=== PATIENT | female | born 1950 | race Caucasian/White ===

== ENCOUNTER 2016-12-09 12:38 | Emergency (ER) | payer OTHER ==
[2016-12-09] MEDS ORDERED: TAMIFLU 75MG75 MG PO (16:51)
[2016-12-09 17:08] VITALS: BP 115/63
[2016-12-09] MEDS ORDERED: AMBIEN10 MG PO (17:21)
[2016-12-09] MEDS ORDERED: SYNTHROID0.1 MG/TAB PO (17:21)
[2016-12-09] MEDS ORDERED: SIMVASTATIN40 M1 PO (17:22)
[2016-12-09] MEDS ORDERED: SAXENDA3 MG/0.5 M SC (17:22)
[2016-12-09] MEDS ORDERED: CITALOPRAM40 MG PO (17:22)
[2016-12-09] MEDS ORDERED: PREMARIN VAG42.5 GM VG (17:23)
[2016-12-09] MEDS ORDERED: FISH OIL1000 MG PO (17:24)
[2016-12-09] MEDS ORDERED: CITRACAL + D E1 EACH PO (17:24)
[2016-12-09] MEDS ORDERED: BIOTIN1000 MC1 PO (17:25)
[2016-12-09] MEDS ORDERED: DAILY VALUE1 EACH PO (17:26)
[2016-12-09] MEDS ORDERED: BENADRYL PO (17:26)
[2016-12-09] MEDS ORDERED: DULCOLAX STOOL100 MG PO (17:26)
[2016-12-09] MEDS ORDERED: ASPIRIN E.C. 8181 MG PO (17:27)
== END 2016-12-09 17:08 | disposition home or self-care (01) ==
LOC: ED 12:38
DX: J09.X2 Influenza due to identified novel influenza A virus with other respiratory manifestations (principal); R55 Syncope and collapse; R51 Headache
CPT/HCPCS: J1885; J7120

== ENCOUNTER → 2016-12-09 | Outpatient (CLI) | payer OTHER ==
[~2016-12-09] MED LIST: AMBIEN10 MG PO; ASPIRIN E.C. 8181 MG PO; BENADRYL PO; BIOTIN1000 MC1 PO; CITALOPRAM40 MG PO; CITRACAL + D E1 EACH PO; DAILY VALUE1 EACH PO; DULCOLAX STOOL100 MG PO; FISH OIL1000 MG PO; PREMARIN VAG42.5 GM VG; SAXENDA3 MG/0.5 M SC; SIMVASTATIN40 M1 PO; SYNTHROID0.1 MG/TAB PO; TAMIFLU 75MG75 MG PO
== END ==
LOC: LAB 12:19
DX: R50.9 Fever, unspecified (principal)

== ENCOUNTER → 2016-12-21 | Outpatient (CLI) | payer OTHER | LOC: LAB 13:49 | DX: Q25.3 Supravalvular aortic stenosis (principal); E03.4 Atrophy of thyroid (acquired) ==

== ENCOUNTER → 2017-05-24 | Outpatient (CLI) | payer OTHER | LOC: LAB 07:20 | DX: Z00.00 Encounter for general adult medical examination without abnormal findings (principal) ==

== ENCOUNTER → 2017-10-09 | Outpatient (CLI) | payer OTHER ==
[2017-10-09 08:26] LABS: EOS # 0.1 (0.04-0.40); EOS % 1.7 % (1.0-5.0); HEMATOCRIT 36.5 % (37.0-47.0); HEMOGLOBIN 11.6 g/dL (12.5-16.0); LYMPH# 2.4 (1.50-4.00); MEAN CELL VOLUME 86 fl (78-100); MEAN CORPUSCULAR HEMOGLOBIN 27 pg (27-31); MEAN CORPUSCULAR HGB CONC 32 g/dL (33-37); MEAN PLATELET VOLUME 9.3 fl (7.4-10.4); MONO # 0.6 (0.20-0.80); NEU # 3.4 (1.40-6.50); PLATELET COUNT 266 K/mm3 (130-400); RED BLOOD COUNT 4.25 M/mm3 (4.10-5.30); RED CELL DISTRIBUTION WIDTH 13.3 % (11.5-14.5); WHITE BLOOD COUNT 6.6 K/mm3 (4.8-10.8)
[2017-10-09 08:41] LABS: ALBUMIN 4.4 g/dL (3.5-5.0); BUN/CREATININE RATIO 21.7 (6.0-26.0); POTASSIUM 4.4 mmol/L (3.6-5.0); TOTAL BILIRUBIN 0.7 mg/dL (0.2-1.3); TOTAL PROTEIN 7.5 g/dL (6.3-8.2)
[2017-10-09 09:04] LABS: URINE APPEARANCE HAZY; URINE BILIRUBIN NEGATIVE (NEGATIVE); URINE BLOOD NEGATIVE (NEGATIVE); URINE COLOR YELLOW; URINE GLUCOSE NEGATIVE (NEGATIVE); URINE KETONE NEGATIVE (NEGATIVE); URINE LEUKOCYTE ESTERASE NEGATIVE (NEGATIVE); URINE MUCUS PRESENT (NOT PRESENT); URINE NITRATE NEGATIVE (NEGATIVE); URINE PROTEIN(semi-quant) TRACE mg/dL (NEGATIVE); URINE UROBILINOGEN NORMAL (NORMAL)
== END ==
LOC: LAB 08:08
PROVIDERS: Nurse Practitioner Primary Care
DX: R10.0 Acute abdomen (principal)

== ENCOUNTER → 2017-10-10 | Outpatient (CLI) | payer OTHER | LOC: RAD 07:16 | DX: R74.8 Abnormal levels of other serum enzymes (principal); R10.11 Right upper quadrant pain; R91.1 Solitary pulmonary nodule | CPT/HCPCS: Q9967 ==

== ENCOUNTER 2018-02-08 11:01 | Emergency (ER) | payer OTHER ==
[~2018-02-08] VITALS: Wt 78.5 kg
[2018-02-08 11:43] LABS: HEMATOCRIT 33.2 % (37.0-47.0); HEMOGLOBIN 10.7 g/dL (12.5-16.0); MEAN CELL VOLUME 85 fl (78-100); MEAN CORPUSCULAR HEMOGLOBIN 27 pg (27-31); MEAN CORPUSCULAR HGB CONC 32 g/dL (33-37); MEAN PLATELET VOLUME 9.6 fl (7.4-10.4); PLATELET COUNT 201 K/mm3 (130-400); RED BLOOD COUNT 3.92 M/mm3 (4.10-5.30); RED CELL DISTRIBUTION WIDTH 13.4 % (11.5-14.5)
[2018-02-08] MEDS ORDERED: ZOLPIDEM TART10 MG PO (11:47)
[2018-02-08] MEDS ORDERED: ATORVASTATIN CA40 MG PO (11:48)
[2018-02-08] MEDS ORDERED: ZANTAC150 M1 PO (11:48)
[2018-02-08 12:02] LABS: BAND 2 % (0-10); LYMPHOCYTE 13 % (20-51); MONOCYTE 1 % (3-10); NEUTROPHILS 84 % (42-75)
[2018-02-08 12:03] LABS: ALBUMIN 3.3 g/dL (3.5-5.0); BUN/CREATININE RATIO 30.5 (6.0-26.0); CALCIUM 8.3 mg/dL (8.4-10.2); POTASSIUM 3.2 mmol/L (3.6-5.0); TOTAL BILIRUBIN 0.3 mg/dL (0.2-1.3); TOTAL PROTEIN 5.9 g/dL (6.3-8.2)
[2018-02-08 12:08] LABS: URINE APPEARANCE CLEAR; URINE BILIRUBIN NEGATIVE (NEGATIVE); URINE BLOOD NEGATIVE (NEGATIVE); URINE COLOR YELLOW; URINE GLUCOSE NEGATIVE (NEGATIVE); URINE KETONE NEGATIVE (NEGATIVE); URINE LEUKOCYTE ESTERASE NEGATIVE (NEGATIVE); URINE NITRATE NEGATIVE (NEGATIVE); URINE PROTEIN(semi-quant) NEGATIVE (NEGATIVE); URINE UROBILINOGEN NORMAL (NORMAL)
[2018-02-08] MEDS ORDERED: CEFDINIR300 MG PO (14:00)
[2018-02-08] MEDS ORDERED: DELTASONE20 M1 PO (14:00)
[2018-02-08 14:17] VITALS: BP 125/64
== END 2018-02-08 14:09 | disposition home or self-care (01) ==
LOC: ED 11:01
PROVIDERS: Physician Assistant
DX: R53.83 Other fatigue (principal); L27.0 Generalized skin eruption due to drugs and medicaments taken internally; T37.0X5A Adverse effect of sulfonamides, initial encounter; N39.0 Urinary tract infection, site not specified; E87.6 Hypokalemia; R42 Dizziness and giddiness; Z88.0 Allergy status to penicillin; E03.9 Hypothyroidism, unspecified; K21.9 Gastro-esophageal reflux disease without esophagitis; I35.0 Nonrheumatic aortic (valve) stenosis; G47.33 Obstructive sleep apnea (adult) (pediatric); K90.41 Non-celiac gluten sensitivity; E78.5 Hyperlipidemia, unspecified; Z79.82 Long term (current) use of aspirin; R01.1 Cardiac murmur, unspecified; Z87.891 Personal history of nicotine dependence
CPT/HCPCS: J2405; J2930; J7120

== ENCOUNTER → 2018-05-29 | Outpatient (CLI) | payer OTHER ==
[~2018-05-29] MED LIST changes: +ATORVASTATIN CA40 MG PO; +CEFDINIR300 MG PO; +DELTASONE20 M1 PO; +ZANTAC150 M1 PO; +ZOLPIDEM TART10 MG PO
[2018-05-29 09:40] LABS: URINE WBC 0 /hpf (0-3)
[2018-05-29 11:43] LABS: EOS # 0.2 (0.04-0.40); EOS % 3.3 % (1.0-5.0); HEMATOCRIT 35.4 % (37.0-47.0); HEMOGLOBIN 10.8 g/dL (12.5-16.0); LYMPH# 1.8 (1.50-4.00); MEAN CELL VOLUME 81 fl (78-100); MEAN CORPUSCULAR HEMOGLOBIN 25 pg (27-31); MEAN CORPUSCULAR HGB CONC 31 g/dL (33-37); MEAN PLATELET VOLUME 9.8 fl (7.4-10.4); MONO # 0.5 (0.20-0.80); NEU # 3.9 (1.40-6.50); PLATELET COUNT 278 K/mm3 (130-400); RED BLOOD COUNT 4.38 M/mm3 (4.10-5.30); RED CELL DISTRIBUTION WIDTH 14.5 % (11.5-14.5); WHITE BLOOD COUNT 6.4 K/mm3 (4.8-10.8)
[2018-05-29 12:25] LABS: ALBUMIN 4.5 g/dL (3.5-5.0); BUN/CREATININE RATIO 22.1 (6.0-26.0); CALCIUM 9.2 mg/dL (8.4-10.2); POTASSIUM 4.5 mmol/L (3.6-5.0); TOTAL BILIRUBIN 0.3 mg/dL (0.2-1.3)
[2018-05-29 13:31] LABS: ERYTHROCYTE SEDIMENTATION RATE 18 mm/hr (0-30)
[2018-05-29 13:48] LABS: URINE APPEARANCE CLEAR; URINE BILIRUBIN NEGATIVE (NEGATIVE); URINE BLOOD NEGATIVE (NEGATIVE); URINE COLOR YELLOW; URINE GLUCOSE NEGATIVE (NEGATIVE); URINE KETONE NEGATIVE (NEGATIVE); URINE LEUKOCYTE ESTERASE NEGATIVE (NEGATIVE); URINE NITRATE NEGATIVE (NEGATIVE); URINE PROTEIN(semi-quant) TRACE mg/dL (NEGATIVE); URINE UROBILINOGEN NORMAL (NORMAL)
[2018-05-29 13:49] LABS: URINE MUCUS PRESENT (NOT PRESENT)
== END ==
LOC: LAB 09:18
PROVIDERS: Internal Medicine
DX: Z00.00 Encounter for general adult medical examination without abnormal findings (principal); Z12.11 Encounter for screening for malignant neoplasm of colon

== ENCOUNTER → 2018-06-07 | Outpatient (CLI) | payer OTHER | LOC: LAB 11:21 | DX: Z12.11 Encounter for screening for malignant neoplasm of colon (principal) ==

== ENCOUNTER → 2018-10-09 | Outpatient (CLI) | payer OTHER | LOC: RAD 13:51 | DX: S22.32XA Fracture of one rib, left side, initial encounter for closed fracture (principal); J98.11 Atelectasis; M18.12 Unilateral primary osteoarthritis of first carpometacarpal joint, left hand; M25.532 Pain in left wrist ==

== ENCOUNTER → 2019-06-03 | Outpatient (CLI) | payer OTHER ==
[2019-06-03 16:50] LABS: EOS # 0.2 (0.04-0.40); EOS % 2.3 % (1.0-5.0); HEMATOCRIT 33.2 % (37.0-47.0); HEMOGLOBIN 10.1 g/dL (12.5-16.0); LYMPH# 2.1 (1.50-4.00); MEAN CELL VOLUME 78 fl (78-100); MEAN CORPUSCULAR HGB CONC 30 g/dL (33-37); MEAN PLATELET VOLUME 10.1 fl (7.4-10.4); MONO # 0.5 (0.20-0.80); NEU # 3.6 (1.40-6.50); PLATELET COUNT 259 K/mm3 (130-400); RED BLOOD COUNT 4.24 M/mm3 (4.10-5.30); RED CELL DISTRIBUTION WIDTH 15.5 % (11.5-14.5); WHITE BLOOD COUNT 6.5 K/mm3 (4.8-10.8)
[2019-06-03 17:04] LABS: ALBUMIN 4.4 g/dL (3.4-4.8); POTASSIUM 4.3 mmol/L (3.5-5.1)
[2019-06-03 17:05] LABS: CALCIUM 9.3 mg/dL (8.3-10.5)
[2019-06-03 17:07] LABS: TOTAL PROTEIN 7.1 g/dL (6.2-8.1)
[2019-06-03 17:09] LABS: TOTAL BILIRUBIN 0.2 mg/dL (0.2-1.2)
[2019-06-03 17:44] LABS: URINE APPEARANCE CLEAR; URINE COLOR YELLOW
[2019-06-03 17:45] LABS: URINE BILIRUBIN NEGATIVE (NEGATIVE); URINE BLOOD NEGATIVE (NEGATIVE); URINE GLUCOSE NEGATIVE (NEGATIVE); URINE KETONE NEGATIVE (NEGATIVE); URINE LEUKOCYTE ESTERASE NEGATIVE (NEGATIVE); URINE NITRATE NEGATIVE (NEGATIVE); URINE PROTEIN(semi-quant) TRACE mg/dL (NEGATIVE); URINE UROBILINOGEN NORMAL (NORMAL)
[2019-06-03 17:46] LABS: URINE MUCUS PRESENT (NOT PRESENT)
[2019-06-03 18:16] LABS: ERYTHROCYTE SEDIMENTATION RATE 25 mm/hr (0-30); MEAN CORPUSCULAR HEMOGLOBIN 24 pg (27-31)
== END ==
LOC: LAB 16:25
PROVIDERS: Internal Medicine
DX: Z00.00 Encounter for general adult medical examination without abnormal findings (principal); Z12.11 Encounter for screening for malignant neoplasm of colon; Z12.31 Encounter for screening mammogram for malignant neoplasm of breast; M85.80 Other specified disorders of bone density and structure, unspecified site; K90.9 Intestinal malabsorption, unspecified; R73.02 Impaired glucose tolerance (oral)

== ENCOUNTER → 2019-08-09 | Outpatient (CLI) | payer OTHER ==
[2019-08-09 10:30] LABS: EOS # 0.1 (0.04-0.40); EOS % 1.3 % (1.0-5.0); HEMATOCRIT 38.2 % (37.0-47.0); HEMOGLOBIN 12.1 g/dL (12.5-16.0); LYMPH# 1.9 (1.50-4.00); MEAN CELL VOLUME 84 fl (78-100); MEAN CORPUSCULAR HEMOGLOBIN 27 pg (27-31); MEAN CORPUSCULAR HGB CONC 32 g/dL (33-37); MEAN PLATELET VOLUME 9.7 fl (7.4-10.4); MONO # 0.6 (0.20-0.80); NEU # 4.2 (1.40-6.50); PLATELET COUNT 220 K/mm3 (130-400); RED BLOOD COUNT 4.54 M/mm3 (4.10-5.30); RED CELL DISTRIBUTION WIDTH 17.3 % (11.5-14.5); WHITE BLOOD COUNT 6.7 K/mm3 (4.8-10.8)
== END ==
LOC: LAB 10:17
PROVIDERS: Internal Medicine
DX: Z00.00 Encounter for general adult medical examination without abnormal findings (principal); R73.02 Impaired glucose tolerance (oral); E03.9 Hypothyroidism, unspecified

== ENCOUNTER → 2020-06-29 | Outpatient (CLI) | payer OTHER ==
[2020-06-29 10:10] LABS: EOS # 0.1 (0.04-0.40); EOS % 2.5 % (1.0-5.0); HEMOGLOBIN 12.6 g/dL (12.5-16.0); LYMPH# 1.6 (1.50-4.00); MEAN CELL VOLUME 90 fl (78-100); MEAN CORPUSCULAR HEMOGLOBIN 29 pg (27-31); MEAN CORPUSCULAR HGB CONC 32 g/dL (33-37); MEAN PLATELET VOLUME 9.3 fl (7.4-10.4); MONO # 0.5 (0.20-0.80); NEU # 2.9 (1.40-6.50); PLATELET COUNT 256 K/mm3 (130-400); RED BLOOD COUNT 4.35 M/mm3 (4.10-5.30); RED CELL DISTRIBUTION WIDTH 13.2 % (11.5-14.5); WHITE BLOOD COUNT 5.2 K/mm3 (4.8-10.8)
[2020-06-29 10:18] LABS: POTASSIUM 4.3 mmol/L (3.5-5.1)
[2020-06-29 10:19] LABS: ALBUMIN 4.1 g/dL (3.4-4.8)
[2020-06-29 10:20] LABS: CALCIUM 8.9 mg/dL (8.3-10.5)
[2020-06-29 10:21] LABS: TOTAL PROTEIN 6.9 g/dL (6.2-8.1)
[2020-06-29 10:23] LABS: TOTAL BILIRUBIN 0.3 mg/dL (0.2-1.2)
[2020-06-29 10:28] LABS: MAGNESIUM 2.09 mg/dL (1.60-2.60)
[2020-06-29 11:04] LABS: URINE APPEARANCE CLEAR; URINE COLOR YELOW
[2020-06-29 11:05] LABS: PH-URINE 5.5 (5.0 - 8.0); URINE BILIRUBIN NEGATIVE (NEGATIVE); URINE BLOOD NEGATIVE (NEGATIVE); URINE GLUCOSE NEGATIVE (NEGATIVE); URINE KETONE NEGATIVE (NEGATIVE); URINE LEUKOCYTE ESTERASE 1+ (NEGATIVE); URINE NITRATE NEGATIVE (NEGATIVE); URINE PROTEIN(semi-quant) NEGATIVE (NEGATIVE); URINE UROBILINOGEN NORMAL (NORMAL)
[2020-06-29 11:28] LABS: ERYTHROCYTE SEDIMENTATION RATE 10 mm/hr (0-30)
== END ==
LOC: LAB 09:56
PROVIDERS: Internal Medicine
DX: Z00.00 Encounter for general adult medical examination without abnormal findings (principal); Z12.11 Encounter for screening for malignant neoplasm of colon; Z12.31 Encounter for screening mammogram for malignant neoplasm of breast; M85.80 Other specified disorders of bone density and structure, unspecified site

== ENCOUNTER → 2021-06-29 | Outpatient (CLI) | payer MEDICARE ==
[2021-06-29 10:07] LABS: BASO # 0.04 (0.02-0.10); EOS # 0.13 (0.04-0.40); EOS % 1.9 % (1.0-5.0); HEMATOCRIT 39.1 % (37.0-47.0); HEMOGLOBIN 12.8 g/dL (12.5-16.0); LYMPH# 2.04 (1.50-4.00); MEAN CELL VOLUME 90 fl (78-100); MEAN CORPUSCULAR HEMOGLOBIN 30 pg (27-31); MEAN CORPUSCULAR HGB CONC 33 g/dL (33-37); MONO # 0.57 (0.20-0.80); PLATELET COUNT 197 K/mm3 (130-400); RED BLOOD COUNT 4.34 M/mm3 (4.10-5.30); RED CELL DISTRIBUTION WIDTH 12.3 % (11.5-14.5)
[2021-06-29 10:15] LABS: ALBUMIN 4.1 g/dL (3.4-4.8); POTASSIUM 4.2 mmol/L (3.5-5.1)
[2021-06-29 10:16] LABS: CALCIUM 8.8 mg/dL (8.3-10.5)
[2021-06-29 10:17] LABS: TOTAL PROTEIN 7.3 g/dL (6.2-8.1)
[2021-06-29 10:19] LABS: TOTAL BILIRUBIN 0.3 mg/dL (0.2-1.2)
[2021-06-29 10:29] LABS: URINE APPEARANCE CLEAR; URINE BILIRUBIN NEGATIVE (NEGATIVE); URINE BLOOD NEGATIVE (NEGATIVE); URINE COLOR YELLOW; URINE GLUCOSE NEGATIVE (NEGATIVE); URINE KETONE NEGATIVE (NEGATIVE); URINE LEUKOCYTE ESTERASE NEGATIVE (NEGATIVE); URINE NITRATE NEGATIVE (NEGATIVE); URINE PROTEIN(semi-quant) NEGATIVE (NEGATIVE); URINE UROBILINOGEN NORMAL (NORMAL); URINE WBC 0-1 /hpf (0-3)
[2021-06-29 11:43] LABS: ERYTHROCYTE SEDIMENTATION RATE 15 mm/hr (0-30)
== END ==
LOC: LAB 09:32
PROVIDERS: Internal Medicine
DX: Z00.00 Encounter for general adult medical examination without abnormal findings (principal); Z12.39 Encounter for other screening for malignant neoplasm of breast; E03.4 Atrophy of thyroid (acquired); E78.2 Mixed hyperlipidemia; K90.9 Intestinal malabsorption, unspecified; R73.03 Prediabetes; M85.80 Other specified disorders of bone density and structure, unspecified site

== ENCOUNTER → 2021-07-27 | Outpatient (CLI) | payer MEDICARE | LOC: MAMMO 07-13 10:43 | DX: Z13.820 Encounter for screening for osteoporosis (principal); M85.80 Other specified disorders of bone density and structure, unspecified site ==

== ENCOUNTER → 2021-07-27 | Outpatient (CLI) | payer MEDICARE | LOC: MAMMO 07-13 10:40 | DX: Z12.31 Encounter for screening mammogram for malignant neoplasm of breast (principal) ==

== ENCOUNTER → 2022-02-10 | Outpatient (CLI) | payer MEDICARE | LOC: RAD 10:53 | DX: S99.922A Unspecified injury of left foot, initial encounter (principal); M19.072 Primary osteoarthritis, left ankle and foot; W19.XXXA Unspecified fall, initial encounter ==

== ENCOUNTER → 2023-07-24 | Outpatient (CLI) | payer MEDICARE ==
[2023-07-24 09:38] LABS: BASO # 0.04 K/mm3 (0.02-0.10); EOS # 0.09 K/mm3 (0.04-0.40); EOS % 1.4 % (1.0-5.0); HEMATOCRIT 37.8 % (37.0-47.0); HEMOGLOBIN 12.1 g/dL (12.5-16.0); LYMPH# 1.82 K/mm3 (1.50-4.00); MEAN CELL VOLUME 85 fl (78-100); MEAN CORPUSCULAR HEMOGLOBIN 27 pg (27-31); MEAN CORPUSCULAR HGB CONC 32 g/dL (33-37); MONO # 0.49 K/mm3 (0.20-0.80); NEU # 4.01 K/mm3 (1.40-6.50); PLATELET COUNT 221 K/mm3 (130-400); RED BLOOD COUNT 4.46 M/mm3 (4.10-5.30); RED CELL DISTRIBUTION WIDTH 13.5 % (11.5-14.5); WHITE BLOOD COUNT 6.5 K/mm3 (4.8-10.8)
[2023-07-24 09:41] LABS: URINE WBC 0 /hpf (0-3)
[2023-07-24 09:53] LABS: POTASSIUM 4.5 mmol/L (3.5-5.1)
[2023-07-24 09:54] LABS: ALBUMIN 4.5 g/dL (3.4-4.8)
[2023-07-24 09:55] LABS: CALCIUM 9.5 mg/dL (8.3-10.5)
[2023-07-24 09:56] LABS: TOTAL PROTEIN 7.7 g/dL (6.2-8.1)
[2023-07-24 09:58] LABS: TOTAL BILIRUBIN 0.6 mg/dL (0.2-1.2)
[2023-07-24 10:03] LABS: MAGNESIUM 2.3 mg/dL (1.60-2.60)
[2023-07-24 10:49] LABS: ERYTHROCYTE SEDIMENTATION RATE 27 mm/hr (0-30)
[2023-07-24 10:50] LABS: URINE APPEARANCE CLEAR; URINE BILIRUBIN NEGATIVE (NEGATIVE); URINE BLOOD NEGATIVE (NEGATIVE); URINE COLOR YELLOW; URINE GLUCOSE NEGATIVE (NEGATIVE); URINE KETONE NEGATIVE (NEGATIVE); URINE LEUKOCYTE ESTERASE NEGATIVE (NEGATIVE); URINE NITRATE NEGATIVE (NEGATIVE); URINE PROTEIN(semi-quant) NEGATIVE (NEGATIVE); URINE UROBILINOGEN NORMAL (NORMAL)
[2023-07-24 22:30] LABS: HEPATITIS C VIRUS ANTIBODY Negative (Negative)
== END ==
LOC: LAB 09:22
PROVIDERS: Internal Medicine
DX: Z12.11 Encounter for screening for malignant neoplasm of colon (principal); Z11.59 Encounter for screening for other viral diseases; M85.80 Other specified disorders of bone density and structure, unspecified site; E03.4 Atrophy of thyroid (acquired); R73.03 Prediabetes; I10 Essential (primary) hypertension; K90.9 Intestinal malabsorption, unspecified; E61.1 Iron deficiency; E78.2 Mixed hyperlipidemia

== ENCOUNTER → 2023-07-27 | Outpatient (CLI) | payer MEDICARE | LOC: RAD 11:24 | DX: I77.9 Disorder of arteries and arterioles, unspecified (principal); H34.9 Unspecified retinal vascular occlusion | CPT/HCPCS: Q9967 ==

== ENCOUNTER → 2023-10-11 | Outpatient (CLI) | payer MEDICARE | LOC: MAMMO 10:26 | DX: Z12.31 Encounter for screening mammogram for malignant neoplasm of breast (principal) ==

== ENCOUNTER → 2024-08-07 | Outpatient (CLI) | payer MEDICARE ==
[2024-08-07 09:02] LABS: BASO # 0.02 K/mm3 (0.02-0.10); EOS # 0.09 K/mm3 (0.04-0.40); EOS % 1.6 % (1.0-5.0); HEMATOCRIT 37.1 % (37.0-47.0); HEMOGLOBIN 12.3 g/dL (12.5-16.0); LYMPH# 1.74 K/mm3 (1.50-4.00); MEAN CELL VOLUME 89 fl (78-100); MEAN CORPUSCULAR HEMOGLOBIN 29 pg (27-31); MEAN CORPUSCULAR HGB CONC 33 g/dL (33-37); MEAN PLATELET VOLUME 9.2 fl (7.4-10.4); MONO # 0.51 K/mm3 (0.20-0.80); PLATELET COUNT 179 K/mm3 (130-400); RED BLOOD COUNT 4.18 M/mm3 (4.10-5.30); RED CELL DISTRIBUTION WIDTH 12.3 % (11.5-14.5); WHITE BLOOD COUNT 5.6 K/mm3 (4.8-10.8)
[2024-08-07 09:11] LABS: ALBUMIN 4.5 g/dL (3.4-4.8)
[2024-08-07 09:12] LABS: CALCIUM 9.9 mg/dL (8.3-10.5)
[2024-08-07 09:13] LABS: TOTAL PROTEIN 7.2 g/dL (6.2-8.1)
[2024-08-07 09:15] LABS: TOTAL BILIRUBIN 0.4 mg/dL (0.2-1.2)
[2024-08-07 09:20] LABS: MAGNESIUM 1.94 mg/dL (1.60-2.60)
== END ==
LOC: LAB 08:38
PROVIDERS: Internal Medicine
DX: Z12.11 Encounter for screening for malignant neoplasm of colon (principal); E03.4 Atrophy of thyroid (acquired); I10 Essential (primary) hypertension; E61.1 Iron deficiency; E78.2 Mixed hyperlipidemia; M85.80 Other specified disorders of bone density and structure, unspecified site; K90.9 Intestinal malabsorption, unspecified; R73.03 Prediabetes

== ENCOUNTER → 2024-10-21 | Outpatient (CLI) | payer MEDICARE | LOC: MAMMO 14:49 | DX: Z12.31 Encounter for screening mammogram for malignant neoplasm of breast (principal) ==